=== PATIENT | female | born 1965 ===

== ENCOUNTER 2019-03-04 15:48 | Emergency (ER) | payer MEDICAID ==
[~2019-03-04] VITALS: Ht 152.4 cm; Wt 101.4 kg
[2019-03-04 15:52] VITALS: Ht 152.4 cm; Wt 101.4 kg
[2019-03-04] MEDS ORDERED: NEURONTIN 300300 MG PO (15:54)
[2019-03-04] MEDS ORDERED: PROTONIX20 MG PO (15:54)
[2019-03-04] MEDS ORDERED: CYMBALTA60 MG PO (15:54)
[2019-03-04] MEDS ORDERED: ESTRACE1 MG PO (15:55)
[2019-03-04] MEDS ORDERED: DETROL LA4 MG PO (15:55)
[2019-03-04] MEDS ORDERED: AMITIZA8 MCG PO (15:55)
[2019-03-04] MEDS ORDERED: ROBAXIN500 MG PO ×2 (19:55→19:57)
[2019-03-04] MEDS ORDERED: ULTRAM50 MG PO (19:57)
[2019-03-04 20:21] VITALS: BP 135/74
== END 2019-03-04 20:20 | disposition home or self-care (01) ==
LOC: D.ER 15:48
DX: S16.1XXA Strain of muscle, fascia and tendon at neck level, initial encounter (principal); X58.XXXA Exposure to other specified factors, initial encounter; Y93.89 Activity, other specified; Y92.89 Other specified places as the place of occurrence of the external cause